=== PATIENT | female | born 2005 | race Two or more races ===

== ENCOUNTER 2024-06-08 07:56 | Emergency (ER) | payer BC, MEDICAID ==
[~2024-06-08] VITALS: Ht 157.5 cm; Wt 48.5 kg
[2024-06-08 08:05] VITALS: BP 125/80; PULSE 113; RESP 18; O2SAT 99
== END 2024-06-08 09:43 | disposition left against medical advice (07) ==
LOC: ER 07:56
DX: R51.9 Headache, unspecified (principal); R11.0 Nausea; Z53.21 Procedure and treatment not carried out due to patient leaving prior to being seen by health care provider